=== PATIENT | male | born 1975 | race Caucasian/White ===

== ENCOUNTER 2023-09-03 21:32 | Emergency (ER) | payer OTHER ==
[~2023-09-03] VITALS: Ht 187.9 cm; Wt 99.8 kg
[~2023-09-03 21:32] MED LIST: ACULAR 0.5%3 ML OPH; ANUCORT HC25 MG RC; ATIVAN0.5 MG PO; ATIVAN1 MG PO; HYDROCODONE BIT1 T11 PO; TOBREX OPHTH S2.5 ML OPH; VOLTAREN50 M1 PO; ZITHROMAX250 MG PO
[2023-09-03] MEDS ORDERED: Tdap Vaccine 0.5 ML SYR (Adult Vaccine) IM ONE (22:20)
[2023-09-03] MEDS ORDERED: Bacitracin Zinc 14 GM TUBE T ONE (22:20)
== END 2023-09-03 22:31 | disposition home or self-care (01) ==
LOC: ED 21:32
DX: S81.831A Puncture wound without foreign body, right lower leg, initial encounter (principal); W64.XXXA Exposure to other animate mechanical forces, initial encounter; Y93.89 Activity, other specified; Y92.009 Unspecified place in unspecified non-institutional (private) residence as the place of occurrence of the external cause; Y99.8 Other external cause status